=== PATIENT | female | born 1935 | race Caucasian/White ===

== ENCOUNTER 2021-01-07 09:42 | Inpatient (IN) | payer MEDICARE ==
[~2021-01-07] VITALS: Ht 160 cm; Wt 74.6 kg
--- NOTE | 2021-01-07 09:52 | NUR ---
BIB [facility] D/T SYMPTOMATIC BRADYCARDIA. PT IS ESTABLISHED WITH DR. DAVENPORT. STATES WAS DIAGNOSED WITH BRADYCARDIA ONE WEEK AGO. PT IS DUE TO GET CARDIAC HALTER MONITOR TOMORROW. STATES WOKE UP TODAY WITH INCREASING LIGHTHEADEDNESS AND SOB. HX OF DM. BS 159.
[2021-01-07] MEDS ORDERED: ATOR-2 PO (10:12)
[2021-01-07] MEDS ORDERED: LEVO25TA2 PO (10:12)
[2021-01-07] MEDS ORDERED: metoprolol (10:12)
[2021-01-07] MEDS ORDERED: zantac (10:12)
[2021-01-07] MEDS ORDERED: METF500T17 PO (10:12)
[2021-01-07] MEDS ORDERED: NIFE20CA PO (10:12)
[2021-01-07] MEDS ORDERED: POTA20TA89 PO (10:12)
[2021-01-07] MEDS ORDERED: TRAM50TA2 PO (10:12)
--- NOTE | 2021-01-07 10:13 | NUR ---
ERMD AT BEDSIDE. CARDIAC PADS PLACED ON PT. PT CONNECTED TO MONITOR.
--- NOTE | 2021-01-07 10:19 | NUR ---
ADVANCED TECH OBTAINING PIV ACCESS AND LABS.
[2021-01-07] MEDS ORDERED: SODIUM CHLORIDE FLUSH 10ML SYR IVF ONE (10:30)
--- NOTE | 2021-01-07 10:37 | NUR ---
DAUGHTER AT BEDSIDE.
[2021-01-07 10:59] LABS: BASOPHILS % (AUTO) 1 % (0-1); EOSINOPHILS % (AUTO) 10 % (1-7); LYMPHOCYTES % (AUTO) 19 % (22-44); MEAN CORPUSCULAR HEMOGLOBIN 31.5 pg (27.0-34.8); MEAN CORPUSCULAR HGB CONC 33.3 g/dL (32.4-35.8); MEAN PLATELET VOLUME 7.9 fL (7.4-10.4); MONOCYTES % (AUTO) 11 % (2-9); NEUTROPHILS % (AUTO) 60 % (42-75); PLATELET COUNT 165 x10^3/uL (130-400); RED BLOOD COUNT 3.55 x10^6/uL (3.82-5.3); RED CELL DISTRIBUTION WIDTH 14.7 % (9.6-15.2)
[2021-01-07 11:01] LABS: MD NO
[2021-01-07 11:06] LABS: ALBUMIN 3.5 g/dL (3.4-5.0); CHLORIDE 109 mmol/L (98-107); CREATININE 2.41 mg/dL (0.55-1.02)
[2021-01-07 11:09] LABS: TROPONIN I < 0.015 ng/mL (0.000-0.045)
[2021-01-07 11:20] LABS: ANION GAP 6 mmol/L (5-15)
--- NOTE | 2021-01-07 11:26 | NUR ---
RN INFORMED ERMD IN REGARDS TO CRITICAL POTASSIUM LEVEL OF 7.2.
[2021-01-07] MEDS ORDERED: DEXTROSE 50%, 50ML SYRINGE IVPush ONE (11:30)
[2021-01-07] MEDS ORDERED: FUROSEMIDE 40 MG/4 ML IVPush ONE (11:30)
[2021-01-07] MEDS ORDERED: CALCIUM GLUCONATE 4.6 MEQ/10 ML IVPush ONE (11:30)
[2021-01-07] MEDS ORDERED: SODIUM BICARB 8.4%, 50ML SYRINGE IVPush ONE (11:30)
[2021-01-07] MEDS ORDERED: INSULIN REGULAR 100 UNITS/ML, 3ML VIAL IVPush ONE (11:30)
[2021-01-07] MEDS ORDERED: DEXTROSE 50%, 50ML SYRINGE ONE (11:38)
[2021-01-07] MEDS ORDERED: FUROSEMIDE 40 MG/4 ML ONE (11:38)
[2021-01-07] MEDS ORDERED: SODIUM BICARB 8.4%, 50ML SYRINGE ONE (11:38)
[2021-01-07] MEDS ORDERED: CALCIUM GLUCONATE 4.6 MEQ/10 ML ONE (11:38)
[2021-01-07] MEDS ORDERED: INSULIN SINGLE DOSE, ER ONE (11:39)
--- NOTE | 2021-01-07 11:48 | NUR ---
ERMD AT BEDSIDE GOING OVER POC. RN TO ADMINISTER MEDICATION PER EMAR. ERMD INFORMED ABOUT BGL.
--- NOTE | 2021-01-07 11:57 | NUR ---
DAVID PATHAK AT BEDSIDE.
--- NOTE | 2021-01-07 12:19 | NUR ---
RN ASSISTED PT TO BSC. +VOID.
--- NOTE | 2021-01-07 12:23 | NUR ---
DIALYSIS CALLED AND INFORMED OF PT BEING ADMITTED TO THE CARDIAC UNIT. NO ROOM ASSIGNMENT AT THIS TIME. DIALYSIS TO FOLLOW UP WITH THE UNIT.
[2021-01-07] MEDS ORDERED: SODIUM CHLORIDE FLUSH 10ML SYR IVF PRN (12:30)
[2021-01-07] MEDS ORDERED: SODIUM ZIRCONIUM CYCLOSILICATE 10 GM PO ONE (12:30)
--- NOTE | 2021-01-07 12:37 | NUR ---
[id number]. PT BEING TRANSPORTED TO IR VIA GURNEY.
[2021-01-07 12:42] LABS: MICROSCOPIC NOT IND
--- NOTE | 2021-01-07 12:51 | NUR ---
REPORT TO KELLY VALDES TO ASSUME PRIMARY CARE OF PT.
[2021-01-07 12:59] LABS: CREATININE,URINE RANDOM 40.1 mg/dL
--- NOTE | 2021-01-07 13:25 | NUR ---
PT BACK FROM IR; TEMP DIALYSIS CATHETER PLACED TO R IJ. DAUGHTER VISITING AT BS. PT WAS UP TO BSC, STATES SHE'S FEELING FINE NOW. HR 50s, VSS. PT UNDERSTANDS POC. SOW FARM MANAGER AT FOR 2ND IV PLACEMENT. REPORTED TO LANE IN CCU.
[2021-01-07] MEDS ORDERED: ONDANSETRON 2MG/ML, 2ML IVPush PRN (13:30)
[2021-01-07] MEDS ORDERED: hydrALAzine 20 MG/ML, 1ML IVPush PRN (13:30)
[2021-01-07] MEDS ORDERED: DOCUSATE 100 MG CAPSULE PO PRN (13:30)
[2021-01-07 13:54] LABS: HCT (SEDRATE) 33.1 % (34.6-47.8)
[2021-01-07 14:04] LABS: INTERNATIONAL NORMALIZED RATIO 1.05 (0.93-1.1); PROTHROMBIN TIME 11.2 Seconds (9.6-11.5)
[2021-01-07 14:16] LABS: FREE T4 (FREE THYROXINE) 1.31 ng/dL (0.76-1.46); TROPONIN I < 0.015 ng/mL (0.000-0.045)
[2021-01-07] MEDS: HEPARIN 5,000 UNITS/ML, 1ML SQ SCH ×2 (15:01→20:41)
[2021-01-07] MEDS: INSULIN LISPRO 100 UNITS/ML, PEN SQ-INSULIN SCH ×2 (15:40→20:50)
[2021-01-07 19:41] LABS: TROPONIN I < 0.015 ng/mL (0.000-0.045)
[2021-01-07] MEDS: AMLODIPINE 5 MG TABLET PO SCH (20:41)
[2021-01-07] MEDS: ATORVASTATIN 40 MG TABLET PO SCH (20:41)
[2021-01-07] MEDS: ACETAMINOPHEN 325 MG TABLET PO PRN (20:50)
[2021-01-07] MEDS: MELATONIN 5 MG TABLET PO PRN (20:50)
[2021-01-07] MEDS ORDERED: AMLODIPINE 5 MG TABLET PO SCH (21:00)
[2021-01-07] MEDS ORDERED: ATORVASTATIN 80 MG TABLET PO SCH (21:00)
[2021-01-08 00:18] VITALS: BP 150/60
[2021-01-08 05:47] LABS: BASOPHILS % (AUTO) 1 % (0-1); EOSINOPHILS % (AUTO) 10 % (1-7); LYMPHOCYTES % (AUTO) 21 % (22-44); MEAN CORPUSCULAR HEMOGLOBIN 32.3 pg (27.0-34.8); MEAN CORPUSCULAR HGB CONC 34.2 g/dL (32.4-35.8); MEAN PLATELET VOLUME 8.1 fL (7.4-10.4); MONOCYTES % (AUTO) 13 % (2-9); NEUTROPHILS % (AUTO) 55 % (42-75); PLATELET COUNT 132 x10^3/uL (130-400); RED BLOOD COUNT 3.19 x10^6/uL (3.82-5.3); RED CELL DISTRIBUTION WIDTH 14.4 % (9.6-15.2)
[2021-01-08 05:49] LABS: MD NO
[2021-01-08 05:56] LABS: ANION GAP 3 mmol/L (5-15); CALCIUM 8.3 mg/dL (8.5-10.1); CHLORIDE 105 mmol/L (98-107)
[2021-01-08 05:59] LABS: CHOL/HDL RATIO 2.4; CHOLESTEROL, TOTAL 89 mg/dL (140-239); CREATININE 1.48 mg/dL (0.55-1.02); HDL CHOL % 42 % (28-40); HDL CHOLESTEROL (DIRECT) 37 mg/dL (40-60); LDL CHOLESTEROL,CALCULATED 35 mg/dL (54-169); LDL/HDL RATIO 0.9 (0.5-3.0); TRIGLYCERIDES 87 mg/dL (50-200); VLDL CHOLESTEROL 17 mg/dL (0-25)
[2021-01-08] MEDS: HEPARIN 5,000 UNITS/ML, 1ML SQ SCH ×3 (06:03→21:34)
[2021-01-08] MEDS: LEVOTHYROXINE 50 MCG TABLET PO SCH (06:03)
[2021-01-08 06:39] VITALS: BP 134/50
[2021-01-08] MEDS ORDERED: PANTOPRAZOLE 40MG TABLET PO SCH (07:30)
[2021-01-08] MEDS: AMLODIPINE 5 MG TABLET PO SCH ×2 (07:53→21:34)
[2021-01-08] MEDS: INSULIN LISPRO 100 UNITS/ML, PEN SQ-INSULIN SCH ×4 (08:01→21:34)
[2021-01-08 11:54] VITALS: BP 158/70
[2021-01-08] MEDS: FUROSEMIDE 20 MG TABLET PO SCH (13:03)
[2021-01-08 20:06] VITALS: BP 137/64
[2021-01-08] MEDS: ATORVASTATIN 40 MG TABLET PO SCH (21:34)
[2021-01-08 21:38] VITALS: BP 149/64
[2021-01-09 01:29] VITALS: BP 124/62
[2021-01-09 05:26] LABS: ANION GAP 5 mmol/L (5-15); CALCIUM 8.2 mg/dL (8.5-10.1); CHLORIDE 105 mmol/L (98-107); CREATININE 1.82 mg/dL (0.55-1.02)
[2021-01-09 05:30] LABS: BASOPHILS % (AUTO) 1 % (0-1); EOSINOPHILS % (AUTO) 9 % (1-7); LYMPHOCYTES % (AUTO) 23 % (22-44); MD NO; MEAN CORPUSCULAR HEMOGLOBIN 32.2 pg (27.0-34.8); MEAN CORPUSCULAR HGB CONC 34.5 g/dL (32.4-35.8); MONOCYTES % (AUTO) 13 % (2-9); NEUTROPHILS % (AUTO) 54 % (42-75); PLATELET COUNT 127 x10^3/uL (130-400); RED CELL DISTRIBUTION WIDTH 14.2 % (9.6-15.2)
[2021-01-09] MEDS: LEVOTHYROXINE 50 MCG TABLET PO SCH (05:41)
[2021-01-09] MEDS: HEPARIN 5,000 UNITS/ML, 1ML SQ SCH ×3 (05:41→21:14)
[2021-01-09 07:51] VITALS: BP 162/64
[2021-01-09] MEDS: INSULIN LISPRO 100 UNITS/ML, PEN SQ-INSULIN SCH ×4 (08:11→21:51)
[2021-01-09] MEDS: FUROSEMIDE 20 MG TABLET PO SCH (08:12)
[2021-01-09] MEDS: AMLODIPINE 5 MG TABLET PO SCH ×2 (08:12→21:14)
[2021-01-09 12:05] VITALS: BP 148/52
[2021-01-09 20:39] VITALS: BP 187/45
[2021-01-09] MEDS: ACETAMINOPHEN 325 MG TABLET PO PRN (21:13)
[2021-01-09] MEDS: ATORVASTATIN 40 MG TABLET PO SCH (21:14)
[2021-01-10 00:02] VITALS: BP 163/73
[2021-01-10] MEDS: ACETAMINOPHEN 325 MG TABLET PO PRN ×4 (01:12→21:13)
[2021-01-10] MEDS: LEVOTHYROXINE 50 MCG TABLET PO SCH (05:58)
[2021-01-10] MEDS: HEPARIN 5,000 UNITS/ML, 1ML SQ SCH ×3 (05:59→21:14)
[2021-01-10 06:24] LABS: BASOPHILS % (AUTO) 1 % (0-1); EOSINOPHILS % (AUTO) 8 % (1-7); LYMPHOCYTES % (AUTO) 19 % (22-44); MEAN CORPUSCULAR HGB CONC 34.3 g/dL (32.4-35.8); MEAN PLATELET VOLUME 7.7 fL (7.4-10.4); MONOCYTES % (AUTO) 15 % (2-9); NEUTROPHILS % (AUTO) 57 % (42-75); PLATELET COUNT 127 x10^3/uL (130-400); RED BLOOD COUNT 3.19 x10^6/uL (3.82-5.3); RED CELL DISTRIBUTION WIDTH 14.4 % (9.6-15.2)
[2021-01-10 06:25] LABS: MD NO
[2021-01-10 06:35] LABS: ALANINE AMINOTRANSFERASE 33 U/L (12-78); ANION GAP 8 mmol/L (5-15); CALCIUM 8.3 mg/dL (8.5-10.1); CHLORIDE 109 mmol/L (98-107); CREATININE 1.35 mg/dL (0.55-1.02)
[2021-01-10 06:38] LABS: ALKALINE PHOSPHATASE 19 U/L (45-117); BILIRUBIN,TOTAL 0.5 mg/dL (0.2-1.0); TOTAL PROTEIN 6.1 g/dL (6.4-8.2)
[2021-01-10] MEDS: INSULIN LISPRO 100 UNITS/ML, PEN SQ-INSULIN SCH ×4 (07:00→21:12)
[2021-01-10] MEDS: POTASSIUM CHLORIDE 10 MEQ TABLET.ER PO SCH ×2 (09:07→16:42)
[2021-01-10] MEDS: DOXAZOSIN 1MG TABLET PO SCH (09:08)
[2021-01-10] MEDS: AMLODIPINE 5 MG TABLET PO SCH ×2 (09:08→21:13)
[2021-01-10] MEDS: FUROSEMIDE 20 MG TABLET PO SCH (09:09)
[2021-01-10 09:35] VITALS: BP 156/60
[2021-01-10 13:12] VITALS: BP 151/64
[2021-01-10 21:08] VITALS: BP 137/64
[2021-01-10] MEDS: MELATONIN 5 MG TABLET PO PRN (21:13)
[2021-01-10] MEDS: ATORVASTATIN 40 MG TABLET PO SCH (21:13)
[2021-01-11 01:14] VITALS: BP 159/53
[2021-01-11] MEDS: LEVOTHYROXINE 50 MCG TABLET PO SCH (05:39)
[2021-01-11] MEDS: HEPARIN 5,000 UNITS/ML, 1ML SQ SCH ×3 (05:39→21:40)
[2021-01-11 05:43] LABS: BASOPHILS % (AUTO) 1 % (0-1); EOSINOPHILS % (AUTO) 9 % (1-7); LYMPHOCYTES % (AUTO) 23 % (22-44); MEAN CORPUSCULAR HEMOGLOBIN 32.1 pg (27.0-34.8); MEAN CORPUSCULAR HGB CONC 34.5 g/dL (32.4-35.8); MONOCYTES % (AUTO) 14 % (2-9); NEUTROPHILS % (AUTO) 53 % (42-75); PLATELET COUNT 139 x10^3/uL (130-400); RED BLOOD COUNT 3.16 x10^6/uL (3.82-5.3); RED CELL DISTRIBUTION WIDTH 14.4 % (9.6-15.2)
[2021-01-11 05:44] LABS: MD NO
[2021-01-11 05:52] LABS: ALBUMIN 2.8 g/dL (3.4-5.0); ANION GAP 7 mmol/L (5-15); CALCIUM 8.2 mg/dL (8.5-10.1); CHLORIDE 110 mmol/L (98-107)
[2021-01-11 05:58] LABS: ALANINE AMINOTRANSFERASE 30 U/L (12-78); ALKALINE PHOSPHATASE 18 U/L (45-117); BILIRUBIN,TOTAL 0.5 mg/dL (0.2-1.0); CREATININE 1.51 mg/dL (0.55-1.02); TOTAL PROTEIN 6.1 g/dL (6.4-8.2)
[2021-01-11] MEDS: INSULIN LISPRO 100 UNITS/ML, PEN SQ-INSULIN SCH ×4 (07:00→20:35)
[2021-01-11] MEDS ORDERED: ANAS1TAB49 PO (07:03)
[2021-01-11] MEDS: POTASSIUM CHLORIDE 10 MEQ TABLET.ER PO SCH ×2 (08:46→16:20)
[2021-01-11] MEDS: FUROSEMIDE 20 MG TABLET PO SCH (08:47)
[2021-01-11] MEDS: DOXAZOSIN 1MG TABLET PO SCH (08:47)
[2021-01-11] MEDS: AMLODIPINE 5 MG TABLET PO SCH ×2 (08:47→20:25)
[2021-01-11 09:06] VITALS: BP 147/68
[2021-01-11] MEDS: ACETAMINOPHEN 325 MG TABLET PO PRN ×2 (14:27→20:26)
[2021-01-11 15:40] VITALS: BP 150/52
[2021-01-11 18:33] VITALS: BP 149/61
[2021-01-11 20:22] VITALS: BP 127/56
[2021-01-11] MEDS: ATORVASTATIN 40 MG TABLET PO SCH (20:25)
[2021-01-11] MEDS: MELATONIN 5 MG TABLET PO PRN (20:27)
[2021-01-12 00:40] VITALS: BP 151/68
[2021-01-12] MEDS: LEVOTHYROXINE 50 MCG TABLET PO SCH (05:16)
[2021-01-12] MEDS: HEPARIN 5,000 UNITS/ML, 1ML SQ SCH ×2 (05:17→14:57)
[2021-01-12 06:11] LABS: ANION GAP 7 mmol/L (5-15); CALCIUM 8.5 mg/dL (8.5-10.1); CHLORIDE 111 mmol/L (98-107); CREATININE 1.43 mg/dL (0.55-1.02)
[2021-01-12 07:12] VITALS: BP 161/68
[2021-01-12] MEDS: INSULIN LISPRO 100 UNITS/ML, PEN SQ-INSULIN SCH ×3 (07:57→16:48)
[2021-01-12] MEDS: FUROSEMIDE 20 MG TABLET PO SCH (09:31)
[2021-01-12] MEDS: AMLODIPINE 5 MG TABLET PO SCH (09:32)
[2021-01-12] MEDS: POTASSIUM CHLORIDE 10 MEQ TABLET.ER PO SCH (09:32)
[2021-01-12] MEDS: DOXAZOSIN 1MG TABLET PO SCH (09:32)
[2021-01-12] MEDS ORDERED: ATOR40TA78 PO (14:40)
[2021-01-12] MEDS ORDERED: HYDR-3341 PO (14:40)
[2021-01-12] MEDS ORDERED: DOXA2TAB9 PO (14:40)
[2021-01-12] MEDS ORDERED: POTA10TA5 PO (14:40)
[2021-01-12] MEDS ORDERED: AMLO-150 PO (14:40)
[2021-01-12] MEDS ORDERED: FURO20TA3 PO (14:40)
[2021-01-12 14:50] VITALS: BP 142/52
[2021-01-13] MEDS ORDERED: DOXAZOSIN 2MG TABLET PO SCH (09:00)
== END 2021-01-12 16:34 | DRG 682 ==
LOC: ED 10:10 → EDIP 13:12 → CCU 14:01 → 4WST 01-08 00:10
PROVIDERS: ADMIT Hospitalist; ATTEND Internal Medicine
PROC: 02HV33Z Insertion of Infusion Device into Superior Vena Cava, Percutaneous Approach (ICD-10-PCS; principal; 2021-01-07)
PROC: B5181ZA Fluoroscopy of Superior Vena Cava using Low Osmolar Contrast, Guidance (ICD-10-PCS; 2021-01-07)
PROC: B548ZZA Ultrasonography of Superior Vena Cava, Guidance (ICD-10-PCS; 2021-01-07)
PROC: 02PYX3Z Removal of Infusion Device from Great Vessel, External Approach (ICD-10-PCS; 2021-01-08)
DX: N17.9 Acute kidney failure, unspecified (principal); I50.33 Acute on chronic diastolic (congestive) heart failure; I13.0 Hypertensive heart and chronic kidney disease with heart failure and stage 1 through stage 4 chronic kidney disease, or unspecified chronic kidney disease; E87.2 Acidosis; Q21.1 Atrial septal defect; I42.9 Cardiomyopathy, unspecified; I44.1 Atrioventricular block, second degree; I35.0 Nonrheumatic aortic (valve) stenosis; E87.5 Hyperkalemia; D63.8 Anemia in other chronic diseases classified elsewhere; E04.9 Nontoxic goiter, unspecified; E11.22 Type 2 diabetes mellitus with diabetic chronic kidney disease; E78.5 Hyperlipidemia, unspecified; E89.0 Postprocedural hypothyroidism; I27.20 Pulmonary hypertension, unspecified; I25.10 Atherosclerotic heart disease of native coronary artery without angina pectoris; N18.30 Chronic kidney disease, stage 3 unspecified; J45.909 Unspecified asthma, uncomplicated; Z95.3 Presence of xenogenic heart valve; Z92.3 Personal history of irradiation; Z91.81 History of falling; Z90.11 Acquired absence of right breast and nipple; Z85.3 Personal history of malignant neoplasm of breast; Z79.811 Long term (current) use of aromatase inhibitors; Z87.891 Personal history of nicotine dependence; Z90.710 Acquired absence of both cervix and uterus; Z95.1 Presence of aortocoronary bypass graft
CPT/HCPCS: 36415; 36556; 71045; 76937; 80048; 80053; 80061; 80069; 81003; 82040; 82306; 82570; 82728; 82962; 83036; 83540; 83550; 83735; 83880; 83970; 84100; 84132; 84156; 84439; 84443; 84484; 85025; 85610; 85651; 87081; 93005; 93306; 96374; 96375; 99291; C1894; G0378; J1644; J1815; J1940; C1751; J0360; J0610; J1642